=== PATIENT | female | born 1985 | race American Indian/Alaskan Native ===

== ENCOUNTER 2020-04-08 16:54 | Emergency (ER) | payer SELFPAY ==
[2020-04-08 17:07] VITALS: BP 157/91
--- NOTE | 2020-04-08 18:24 | Emergency Department Report ---
ED Female HPI - General Chief complaint: Skin/Abscess/Foreign Body Stated complaint: BOILS IN VAGINAL/ANAL AREA Time Seen by Provider: 04/08/20 18:15 Source: patient Mode of arrival: Ambulatory Limitations: No Limitations - History of Present Illness Initial comments: 35-year-old female presents to the ER today complaining of painful bumps in her vaginal and buttocks area. She states that she noticed it 3 weeks ago. She reports a white vaginal discharge. She denies any UTI symptoms. She reports that she has not had any new sexual partners. Last menstrual cycle was March 05, 2020. She is status post tubal ligation. she reports no pelvic pain, abdominal pain, lower back pain. MD Complaint: other (painful bumps ) - Related Data Previous Rx's Medication Instructions Recorded Last Taken Type Acetaminophen/Codeine [Tylenol 1 tab PO Q4HR PRN #12 tablet 04/08/20 Unknown Rx /Codeine # 3 tab] DOXYCYCLINE Hyclate [Vibramycin 100 mg PO Q12HR #14 capsule 04/08/20 Unknown Rx CAP] Valacyclovir HCl [Valtrex] 1,000 mg PO BID #14 tablet 04/08/20 Unknown Rx metroNIDAZOLE [Flagyl] 500 mg PO Q12HR #14 tab 04/08/20 Unknown Rx Allergies Allergy/AdvReac Type Severity Reaction Status Date / Time No Known Allergies Allergy Unverified 04/08/20 17:04 ED Review of Systems ROS: Stated complaint: BOILS IN VAGINAL/ANAL AREA Other details as noted in HPI Comment: All other systems reviewed and negative Gastrointestinal: denies: nausea, vomiting, diarrhea, constipation, hematemesis, melena Genitourinary: discharge. denies: urgency, dysuria, frequency, hematuria, abnormal menses, dyspareunia Skin: rash, lesions ED Past Medical Hx - Past Medical History Previous Medical History?: No - Surgical History Additional Surgical History: HERNIA - Social History Smoking Status: Never Smoker Substance Use Type: None - Medications Home Medications: Home Medications Medication Instructions Recorded Confirmed Last Taken Type Acetaminophen/Codeine [Tylenol 1 tab PO Q4HR PRN #12 tablet 04/08/20 Unknown Rx /Codeine # 3 tab] DOXYCYCLINE Hyclate [Vibramycin 100 mg PO Q12HR #14 capsule 04/08/20 Unknown Rx CAP] Valacyclovir HCl [Valtrex] 1,000 mg PO BID #14 tablet 04/08/20 Unknown Rx metroNIDAZOLE [Flagyl] 500 mg PO Q12HR #14 tab 04/08/20 Unknown Rx ED Physical Exam - General Limitations: No Limitations General appearance: alert, in no apparent distress - Eye Eye exam: Present: normal appearance, PERRL, EOMI Pupils: Present: normal accommodation - Respiratory Respiratory exam: Absent: normal lung sounds bilaterally - Cardiovascular Cardiovascular Exam: Present: regular rate - GI/Abdominal GI/Abdominal exam: Present: soft. Absent: distended, tenderness - External exam: Present: lesions (Flesh-colored raised mildly excor iated/ulcerated lesions noted about the perineal area, in the lower buttocks area, labia majora; they are tender to palpate. No abscess noted) Speculum exam: Present: vaginal discharge (Thin yellow), cervical discharge (Thin yellow). Absent: vaginal bleeding, foreign body, tissue, laceration Bi-manual exam: Present: normal bi-manual exam. Absent: cervical motion tendernes, adnexal tenderness - Neurological Exam Neurological exam: Present: alert, oriented X3, CN II-XII intact, normal gait - Psychiatric Psychiatric exam: Present: normal affect, normal mood ED Course Vital Signs 04/08/20 17:05 Temperature 99.1 F Pulse Rate 70 Respiratory 18 Rate Blood Pressure 157/91 O2 Sat by Pulse 100 Oximetry ED Medical Decision Making - Medical Decision Making 35-year-old female presents to the ER today complaining of painful bumps in her vaginal and buttocks area. She states that she noticed it 3 weeks ago. She reports a white vaginal discharge. She denies any UTI symptoms. She reports that she has not had any new sexual partners. Last menstrual cycle was March 05, 2020. She is status post tubal ligation. she reports no pelvic pain, abdomi nal pain, lower back pain. Patient's pelvic exam is concerning for genital warts and also concurrent genital herpes. Her wet prep is positive for trichomonas and BV. Discussed suspected diagnosis with patient. She will be treated prophylactically for gonorrhea and chlamydia. Will also be treated for her trichomonas, BV and genital herpes. Instructed patient that she needs to follow-up with her [facility] for treatment of possible genital warts, she may need a biopsy and also a Pap smear since she had not had one in several years. Recommend no sexual contact for at least 7 days. Informed her that her significant other should also get treated and tested whether he has symptoms or not. Patient expressed understanding of instructions and agree with plan. She does not appear to be in any acute distress, she is not toxic, she is well-appearing, her vital signs are stable. She does not have an acute abdominal exam nor does she have a pelvic exam concerning for tubo-ovarian abscess or PID at this time. Patient stable at time of discharge. Critical care attestation.: If time is entered above; I have spent that time in minutes in the direct care of this critically ill patient, excluding procedure time. ED Disposition Clinical Impression: Genital herpes, Genital warts, Bacterial vaginosis, Trichomonal vaginitis Disposition: TO HOME OR SELFCARE Is pt being admited?: No Does the pt Need Aspirin: No Condition: Stable Instructions: Bacterial Vaginosis, Genital Warts, [id number], Genital Herpes, Trichomoniasis, Bacterial Vaginosis (ED) Prescriptions: metroNIDAZOLE [Flagyl] 500 mg PO Q12HR #14 tab Acetaminophen/Codeine [Tylenol /Codeine # 3 tab] 1 tab PO Q4HR PRN #12 tablet PRN Reason: Pain Valacyclovir HCl [Valtrex] 1,000 mg PO BID #14 tablet DOXYCYCLINE Hyclate [Vibramycin CAP] 100 mg PO Q12HR #14 capsule Referrals: VARINDER ALVARADO MD [Staff Physician] - 3-5 Days [facility] [Provider Group] - 3-5 Days Forms: STI Treatment and Prevention Time of Disposition: 20:50
[2020-04-08 19:26] LABS: Bilirubin,Urine NEG (Negative); Blood,Urine SM (Negative); Color,Urine Straw (Yellow); Mucus,Urine FEW /HPF; Protein,Urine <15 mg/dL mg/dL (Negative); Urobilinogen,Urine < 2.0 mg/dL (<2.0)
[2020-04-08 19:28] LABS: HCG Qualitative,Urine Negative (Negative)
[2020-04-08] MEDS ORDERED: LIDOCAINE-MPF (1%) 10 MG/1 ML VIAL 5 ML INFILTRATI ONE (20:31)
== END 2020-04-08 21:10 | disposition home or self-care (01) ==
LOC: ED 16:54
DX: A63.0 Anogenital (venereal) warts (principal); A60.00 Herpesviral infection of urogenital system, unspecified; A59.01 Trichomonal vulvovaginitis; N76.0 Acute vaginitis; Z79.899 Other long term (current) drug therapy
CPT/HCPCS: 81001; 81025; 87086; 87210; 87591; 96372; 99283; J0696

== ENCOUNTER 2020-12-03 12:27 | Emergency (ER) | payer SELFPAY ==
[~2020-12-03 12:27] MED LIST: ETOMIDATE 20 MG/10 ML INJ IV ONE; MIDAZOLAM 5 MG/5 ML INJ MDV IV ONE; SUCCINYLCHOLINE CHLORIDE 200 MG/10 ML INJ MDV ONE
[2020-12-03] MEDS ORDERED: SODIUM CHLORIDE 0.9% 1000 ML 1,000 ML IV ONE ×2 (12:30→13:35)
[2020-12-03] MEDS ORDERED: SODIUM CHLORIDE 0.9% 1000 ML 1,000 ML ONE (12:34)
--- NOTE | 2020-12-03 12:37 | Emergency Department Report ---
ED General Adult HPI - General Stated complaint: AMS Time Seen by Provider: 12/03/20 12:29 - History of Present Illness Initial comments: Patient was brought in by EMS for altered mental status. History is obtained from EMS as the patient is altered and cannot provide cogent history. According to EMS, the patient had returned home Wednesday after "partying night." The boyfriend has allegedly been taking care of her and bathing her since then. She was altered and confused. She was not waking up. She was not coming around. The significant other called EMS today to have the patient transported here. They report that the patient had some superficial abrasions to the feet. There was no visible sign of head trauma. They report a GCS of 8. Patient was not pulling secretions. Glucose was checked which was normal. They brought the patient here for evaluation. - Related Data Allergies Allergy/AdvReac Type Severity Reaction Status Date / Time No Known Allergies Allergy Unverified 04/08/20 17:04 ED Review of Systems ROS: Stated complaint: AMS Other details as noted in HPI Comment: Unobtainable due to pts medical conditions (Stupor) ED Past Medical Hx - Past Medical History Additional medical history: Cannot be obtained from the patient secondary to stupor and altered mental status - Surgical History Additional Surgical History: HERNIA. Cannot be obtained from the patient secondary to stupor and altered mental status - Family History Family history: other (Cannot be obtained from the patient secondary to stupor and altered mental status) - Social History Smoking Status: Never Smoker Substance Use Type: None, Other (Cannot be obtained from the patient secondary to stupor and altered mental status) ED Physical Exam - General Limitations: Altered Mental Status, Other (Pulse ox was noted. Patient is not hypoxic.) General appearance: other (Stuporous. She does look to the left primarily. She will not verbalize or answer questions. She will not follow commands.) - Head Head exam: Present: atraumatic, normocephalic - Eye Eye exam: Present: normal appearance, PERRL, EOMI. Absent: scleral icterus - ENT ENT exam: Present: mucous membranes dry, normal external ear exam - Neck Neck exam: Present: other (Trachea is midline) - Respiratory Respiratory exam: Present: normal lung sounds bilaterally. Absent: respiratory distress - Cardiovascular Cardiovascular Exam: Present: normal rhythm, tachycardia - GI/Abdominal GI/Abdominal exam: Present: soft. Absent: distended, mass - Extremities Exam Extremities exam: Present: normal capillary refill, other (Superficial abrasions are noted to the extremities). Absent: pedal edema - Back Exam Back exam: Present: normal inspection - Neurological Exam Neurological exam: Present: reflexes normal, other (Stuporous. She seems to have flexion at the right elbow. Right arm seems to be contracted) - Psychiatric Psychiatric exam: Present: other (Stuporous) - Skin Skin exam: Present: warm, dry ED Course Vital Signs 12/03/20 12/03/20 14:10 14:36 Pulse Rate 94 H 52 L Respiratory 31 H 25 H Rate Blood Pressure 190/116 207/111 [Left] O2 Sat by Pulse 99 99 Oximetry - Reevaluation(s) Reevaluation #1: 12/03/20 12:37 EMS was met upon arrival. IV and labs were ordered. CT was ordered. Reevaluation #2: 12/03/20 13:37 UA was noted. Rocephin was ordered. Reevaluation #3: 12/03/20 14:03 CT was noted. Reading is pending. Patient seems to have a large area of shift. Mannitol was ordered. Reevaluation #4: 12/03/20 14:16 CT d/w n/s at [facility] and transfer recommended. CT d/w family and need for transfer. Reevaluation #5: 12/03/20 14:48 [facility] does not have beds available. [facility] is checking. We will contact [facility]. 12/03/20 14:57 [facility] does have bed availability. They are willing to take the patient. She will be transferred via flight. They have requested intubation as long as that does not delay transport. That should not. We will proceed with intubation. Sister has been updated. - Intubation Time Out Performed: Yes Sedative: Etomidate Mg Given: 20 Paralytic: Succinylcholine Mg Given: 160 Laryngoscope: fiberoptic video scope Size: 4 ET Tube Size: 7.5 Tube Secured Depth (cm): 23 Tube Secured Location: teeth Tube Placement Confirmation: visualized tube passing t, equal breath sounds bilat, no breath sounds over epi, confirmation by capnometr Patient Tolerated Procedure: well, no complications Intubation Complications: none ED Medical Decision Making - Lab Data Result diagrams: 12/03/20 12:52 12/03/20 12:52 - Medical Decision Making Patient presented by EMS with altered mental status. She is found to have multiple issues including a massive left MCA distribution stroke with shift and concern for herniation. Patient was found to have a urinary tract infection with lactic acidosis concerning for severe sepsis. She is also reportedly had a vaginal tampon in for 5 days which was removed. She has been aggressively treated with fluids and antibiotics. She has been intubated for airway prot ection. Case has been discussed with the stroke team at [facility] who has accepted the patient. Sister is here and has been updated. Critical Care Time: Yes Critical care attestation.: If time is entered above; I have spent that time in minutes in the direct care of this critically ill patient, excluding procedure time. Critical Care Time: Critical care time of 60 minutes exclusive of all procedures ED Disposition Clinical Impression: Acute ischemic left MCA stroke, Drug abuse, Severe sepsis UTI (urinary tract infection) Qualifiers: Urinary tract infection type: site unspecified Hematuria presence: without hematuria Qualified Code(s): N39.0 - Urinary tract infection, site not specified Disposition: 02 [facility] Is pt being admited?: No Condition: Stable Referrals: PRIMARY CARE, [Primary Care Provider] - 3-5 Days
[2020-12-03 13:08] LABS: Basophils % (Auto) 0.2 % (0.0-1.8); Hematocrit 53.5 % (30.3-42.9); Hemoglobin 17.8 gm/dl (10.1-14.3); Lymphocytes # (Auto) 0.9 K/mm3 (1.2-5.4); Mean Corpuscular HGB Conc 33 % (30-34); Mean Corpuscular Volume 86 fl (79-97); Monocytes # (Auto) 1.2 K/mm3 (0.0-0.8); Monocytes % (Auto) 9.2 % (0.0-7.3); Platelet Count 319 K/mm3 (140-440); Red Blood Count 6.26 M/mm3 (3.65-5.03); Red Cell Distribution Width 13.7 % (13.2-15.2)
[2020-12-03 13:19] LABS: Bacteria,Urine 1+ /HPF (Negative); Bilirubin,Urine NEG (Negative); Blood,Urine MOD (Negative); Color,Urine Amber (Yellow); Mucus,Urine 3+ /HPF
[2020-12-03 13:20] LABS: Protein,Urine >500 mg/dL (Negative)
[2020-12-03 13:25] LABS: Benzodiazepines Screen,Urine Negative; Methadone Screen,Urine Negative; Opiate Screen,Urine Negative
[2020-12-03] MEDS ORDERED: cefTRIAXone/NS 1 GM/50 ML 1 GM/50 ML BAG IV ONE (13:35)
[2020-12-03] MEDS ORDERED: MANNITOL 20% 500 ML IV ONE (14:00)
[2020-12-03 14:04] LABS: Alanine Aminotransferase 19 units/L (7-56); Albumin 4.6 g/dL (3.9-5); BUN/Creatinine Ratio 25; Blood Urea Nitrogen 20 mg/dL (7-17); Calcium 10.7 mg/dL (8.4-10.2); Hemolysis Index 8
[2020-12-03 14:07] LABS: Amphetamine Screen,Urine Positive; Cannabinoid Screen,Urine Positive; Cocaine Screen,Urine Positive
--- NOTE | 2020-12-03 14:12 | Cat Scan Report ---
CT BRAIN: 12/03/2020 INDICATION / CLINICAL INFORMATION: ams. COMPARISON: None available. FINDINGS: BRAIN/INTRACRANIAL STRUCTURES: Unenhanced CT images of the brain demonstrate a large area of ischemic edema involving the distribution of left middle and anterior cerebral arteries. There is extensive l oss of costello-white differentiation and significant mass effect. Sulcal definition is limited throughou t the cerebral hemispheres, as evidence of increased intracranial pressure. There is critical midline shift of approximately 10 mm. Obscures no soft tissue planes in the left ambient cistern region may be an indication of impending o r progressing uncal herniation. Note is made of hyperdensity in the left distal internal carotid artery and middle cerebral artery, c orresponding with likely thrombosis. There is developing dilatation of the temporal horn of the right lateral ventricle, which may be an i ndication of progressive right lateral ventricular hydrocephalus. There is no evidence of hemorrhage. There are no abnormal extra-axial fluid collections. EXTRACRANIAL STRUCTURES: Unremarkable. IMPRESSION: Extensive acute left MCA and JH distribution infarct with significant mass effect as described abov e. Significant midline shift and possible uncal herniation noted. Positive critical result: Time of discovery: 1404 ET Notification: Dr. Fine In the emergency department at [address] scans at this location are performed using dose reduction to ALARA by means of automated expos ure control. Signer Name: Robert Flynn MD Signed: 12/03/2020 2:07 PM Workstation Name: [id number]
--- NOTE | 2020-12-03 15:54 | XRay Report ---
CHEST 1 VIEW 12/03/2020 3:37 PM INDICATION / CLINICAL INFORMATION: intubation. COMPARISON: None available. FINDINGS: SUPPORT DEVICES: The tip of the ET tube is about 3 cm above the paty. HEART / MEDIASTINUM: No significant abnormality. LUNGS / PLEURA: No significant pulmonary or pleural abnormality. No pneumothorax. ADDITIONAL FINDINGS: No significant additional findings. IMPRESSION: 1. Endotracheal tube in expected position. Signer Name: Jovan Moran MD Signed: 12/03/2020 3:50 PM Workstation Name: [id number]
[2020-12-03 16:16] VITALS: BP 177/85
== END 2020-12-03 16:10 | disposition hospice, inpatient (51) ==
LOC: ED 12:27
DX: A41.9 Sepsis, unspecified organism (principal); R65.20 Severe sepsis without septic shock; I63.512 Cerebral infarction due to unspecified occlusion or stenosis of left middle cerebral artery; N39.0 Urinary tract infection, site not specified; F19.10 Other psychoactive substance abuse, uncomplicated
CPT/HCPCS: 31500; 36415; 70450; 71045; 80053; 80307; 81001; 82140; 82550; 84703; 85025; 96365; 96375; 99291; J0330; J0696; J2150; J2250; J7030; 80320; 82962; 96360; 96361; G0480